=== PATIENT | female | born 1950 | race Caucasian/White ===

== ENCOUNTER 2017-11-22 13:35 | Inpatient (IN) | payer MEDICARE, OTHER ==
[2017-11-22] MEDS ORDERED: NON-FORMULARY ITEM (Oxycodone Hcl/Acetaminophen [Oxycodon-Acetaminophen 7.5-325] 1 EACH) PO PRN (17:00)
[2017-11-22] MEDS: PERCOCET TABLET 5/325MG PO PRN (19:42)
[2017-11-22] MEDS: Senokot-S Tablet PO SCH (21:43)
[2017-11-22] MEDS: Mirapex 0.5 MG Tablet PO SCH (21:43)
[2017-11-23] MEDS: PERCOCET TABLET 5/325MG PO PRN ×3 (04:18→18:21)
[2017-11-23] MEDS: SYNTHROID 25 MCG PO SCH (09:44)
[2017-11-23] MEDS: Zestril 10 MG PO SCH (09:44)
[2017-11-23] MEDS: Ecotrin 325 MG PO SCH (09:44)
[2017-11-23] MEDS: ZOLOFT 50 MG TABLET PO SCH (09:44)
[2017-11-23] MEDS: Senokot-S Tablet PO SCH ×2 (09:44→21:23)
[2017-11-23] MEDS: Tricor 145 MG PO SCH (09:44)
[2017-11-23] MEDS: SYNTHROID 112 MCG PO SCH (09:44)
[2017-11-23] MEDS ORDERED: Aplisol ID SCH (10:00)
[2017-11-23] MEDS ORDERED: NON-FORMULARY ITEM (Levothyroxine Sodium [Levothyroxine Sodium] 137 MCG) PO SCH (10:00)
[2017-11-23] MEDS: Mirapex 0.5 MG Tablet PO SCH (21:23)
[2017-11-24] MEDS: PERCOCET TABLET 5/325MG PO PRN ×3 (00:10→21:46)
[2017-11-24] MEDS: SYNTHROID 25 MCG PO SCH (07:56)
[2017-11-24] MEDS: SYNTHROID 112 MCG PO SCH (07:57)
[2017-11-24] MEDS: ZOLOFT 50 MG TABLET PO SCH (09:50)
[2017-11-24] MEDS: Ecotrin 325 MG PO SCH (09:50)
[2017-11-24] MEDS: Zestril 10 MG PO SCH (09:50)
[2017-11-24] MEDS: Tricor 145 MG PO SCH (09:50)
[2017-11-24] MEDS: Senokot-S Tablet PO SCH ×2 (09:50→21:44)
--- NOTE | 2017-11-24 19:16 | PCM.HP ---
History of Present Illness - Chief Complaint Chief Complaint: deconditioning r/t hip replacement History of Present Illness: is a 67 year old female.admitted for rehabilitation after hip replacement. - Review of Systems Constitutional: No Fever, No Chills Eyes: No Symptoms Ears, Nose, & Throat: No Symptoms Respiratory: No Cough, No Short Of Breath Cardiac: No Chest Pain, No Edema, No Syncope Abdominal/Gastrointestinal: No Abdominal Pain, No Nausea, No Vomiting, No Diarrhea Genitourinary Symptoms: No Dysuria Musculoskeletal: No Back Pain, No Neck Pain Skin: No Rash Neurological: No Dizziness, No Focal Weakness, No Sensory Changes Psychological: No Symptoms Endocrine: No Symptoms Hematologic/Lymphatic: No Symptoms Immunological/Allergic: No Symptoms Medications & Allergies Home Medications: Home Medication List Aspirin EC 325 mg [Ecotrin 325 MG] 325 mg PO DAILY 11/22/17 [History Confirmed 11/22/17] Fenofibrate,Micronized 145 mg* [Tricor 145 MG] 145 mg PO DAILY 11/22/17 [ History Confirmed 11/22/17] Levothyroxine Sodium 137 mcg PO DAILY 11/22/17 [History Confirmed 11/22/17] Lisinopril 10 mg [Zestril 10 MG] 10 mg PO DAILY 11/22/17 [History Confirmed 11/22/17] Oxycodone HCl/Acetaminophen [Oxycodon-Acetaminophen 7.5-325] 1 each PO Q4HPRN PRN 11/22/17 [History Confirmed 11/22/17] Pramipexole Di-HCl 0.5 mg [Mirapex 0.5 MG Tablet] 0.25 mg PO HS 11/22/17 [ History Confirmed 11/22/17] Sennosides/Docusate Sodium [Senna-Docusate Sodium Tablet] 1 each PO BID [History Confirmed 11/22/17] Sertraline HCl 50 mg [Zoloft 50 mg Tablet] 100 mg PO DAILY 11/22/17 [ History Confirmed 11/22/17] Allergies/Adverse Reactions: Allergies Allergy/AdvReac Type Severity Reaction Status Date / Time Sulfa (Sulfonamide Allergy Verified 11/22/17 16:51 Antibiotics) - Past Medical History Past Medical History: Yes Neurological History: No Pertinent History ENT History: No Pertinent History Cardiac History: High Cholesterol, Hypertension Respiratory History: No Pertinent History Endocrine Medical History: Other Musculoskelatal History: Fractures GI Medical History: No Pertinent History History: No Pertinent History Pyscho-Social History: No Pertinent History Reproductive Disorders: No Pertinent History Comment: R TIB/FIB FX D/T FALL 10 YEARS AGO, GRAVES DISEASE - Female History Are you now?: No - Past Surgical History Past Surgical History: Yes Neuro Surgical History: No Pertinent History Cardiac History: No Pertinent History Respiratory Surgery: No Pertinent History GI Surgical History: No Pertinent History Genitourinary Surgical Hx: No Pertinent History Musculskeletal Surgical Hx: Joint Replacement, Other Female Surgical History: No Pertinent History Other Surgical History: lt hip total replacement, rt fib/tib fracture repair with hardware - Social History Smoking Status: Never smoker Exposure to second hand smoke: No Alcohol: None Drug Use: none - Physical Exam Vital Signs: Vital Signs - 24 hr Temp Pulse Resp BP Pulse Ox 11/24/17 07:20 98.1 F 63 18 119/57 94 L 11/24/17 00:39 101/54 92 L 11/23/17 20:00 98.4 F 83 18 133/57 96 General Appearance: no apparent distress, alert Neurologic Exam: alert, oriented x 3, cooperative, normal mood/affect, nml cerebellar function, nml station & gait, sensation nml, No motor deficits Eye Exam: PERRL/EOMI, eyes nml inspection Ears, Nose, Throat Exam: normal ENT inspection, TMs normal, pharynx normal, moist mucous membranes Neck Exam: normal inspection, non-tender, supple, full range of motion Respiratory Exam: normal breath sounds, lungs clear, No respiratory distress Cardiovascular Exam: regular rate/rhythm, normal heart sounds, normal peripheral pulses Gastrointestinal/Abdomen Exam: soft, normal bowel sounds, No tenderness, No mass Back Exam: normal inspection, normal range of motion, No CVA tenderness, No vertebral tenderness Extremity Exam: normal inspection, normal range of motion, pelvis stable Skin Exam: normal color, warm, dry, No rash Lymphatic Exam: No adenopathy Assessment/Plan (1) Physical deconditioning Current Visit: Yes Status: Acute Code(s): R53.81 - OTHER MALAISE (2) Hip joint replacement status Current Visit: Yes Status: Acute Code(s): Z96.649 - PRESENCE OF UNSPECIFIED ARTIFICIAL HIP JOINT
[2017-11-24] MEDS: Mirapex 0.5 MG Tablet PO SCH (21:44)
[2017-11-25] MEDS: PERCOCET TABLET 5/325MG PO PRN ×4 (01:59→19:52)
[2017-11-25] MEDS: ZOLOFT 50 MG TABLET PO SCH (07:41)
[2017-11-25] MEDS: Tricor 145 MG PO SCH (07:41)
[2017-11-25] MEDS: Zestril 10 MG PO SCH (07:42)
[2017-11-25] MEDS: SYNTHROID 112 MCG PO SCH (07:43)
[2017-11-25] MEDS: Senokot-S Tablet PO SCH ×2 (07:43→20:56)
[2017-11-25] MEDS: Ecotrin 325 MG PO SCH (07:43)
[2017-11-25] MEDS: SYNTHROID 25 MCG PO SCH (07:47)
[2017-11-25] MEDS: Mirapex 0.5 MG Tablet PO SCH (20:57)
[2017-11-26] MEDS: PERCOCET TABLET 5/325MG PO PRN ×4 (01:04→21:11)
[2017-11-26] MEDS: SYNTHROID 25 MCG PO SCH (09:16)
[2017-11-26] MEDS: Zestril 10 MG PO SCH (09:16)
[2017-11-26] MEDS: Senokot-S Tablet PO SCH ×2 (09:16→21:11)
[2017-11-26] MEDS: Tricor 145 MG PO SCH (09:16)
[2017-11-26] MEDS: Ecotrin 325 MG PO SCH (09:16)
[2017-11-26] MEDS: ZOLOFT 50 MG TABLET PO SCH (09:16)
[2017-11-26] MEDS: SYNTHROID 112 MCG PO SCH (09:17)
--- NOTE | 2017-11-26 14:08 | PCM.NOTE ---
Date and Time: 11/26/17 9628 Subjective Assessment: doing better - Review of Systems Constitutional: No Fever, No Chills Eyes: No Symptoms Ears, Nose, & Throat: No Symptoms Respiratory: No Cough, No Short Of Breath Cardiac: No Chest Pain, No Edema, No Syncope Abdominal/Gastrointestinal: No Abdominal Pain, No Nausea, No Vomiting, No Diarrhea Genitourinary Symptoms: No Dysuria Musculoskeletal: No Back Pain, No Neck Pain Skin: No Rash Neurological: No Dizziness, No Focal Weakness, No Sensory Changes Psychological: No Symptoms Endocrine: No Symptoms Hematologic/Lymphatic: No Symptoms Immunological/Allergic: No Symptoms Objective Exam General Appearance: no apparent distress, alert Neurologic Exam: alert, oriented x 3, cooperative, normal mood/affect, nml cerebellar function, sensation nml, No motor deficits Skin Exam: normal color, warm, dry Eye Exam: PERRL, EOMI, eyes nml inspection Ears, Nose, Throat Exam: normal ENT inspection, pharynx normal, moist mucous membranes Neck Exam: normal inspection, non-tender, supple, full range of motion Respiratory Exam: normal breath sounds, lungs clear, No respiratory distress Cardiovascular Exam: regular rate/rhythm, normal heart sounds Gastrointestinal/Abdomen Exam: soft, No tenderness, No mass Extremity Exam: normal inspection, normal range of motion Back Exam: normal inspection, normal range of motion, No CVA tenderness, No vertebral tenderness Pelvic Exam: deferred Rectal Exam: deferred OBJECTIVE DATA Vital Signs: Vital Signs - 24 hr Temp Pulse Resp BP Pulse Ox 11/26/17 08:00 97.9 F 63 18 115/62 11/25/17 20:00 98.3 F 63 12 108/53 95 Pain Assessment - Last Documented Pain Intensity 5 Pain Scale Used 0-10 Pain Scale Intake and Output: Intake & Output 11/24/17 11/25/17 11/26/17 11/27/17 11:59 11:59 11:59 11:59 Intake Total 810 800 Balance 810 800 Multi-Disciplinary Progress Notes: Multi-Disciplinary Progress Notes 11/26/17 10:30 (created 11/26/17 12:28) Case Management Note by Alyce Isabel SPOKE WITH PATIENT TODAY REGARDING NEEDS AT DISCHARGE. PATIENT REPORTS SHE LIVES AT HOME ALONE AND PRIOR TO SURGERY WAS COMPLETELY INDEPENDENT AND HELPED CARE FOR HER PARENTS. SHE WOULD LIKE TO RETURN HOME AT [place]. SHE STATED SHE COULD MOVE IN WITH HER PARENTS AT [facility] IF NEEDED. SHE REPORTED THE NEED FOR A WALKER ON [place] AND IS INTERESTED IN [facility]. SHE WAS GIVEN PROVIDER PREFERENCE SHEET TO LOOK AT AND PICK FROM. WILL FAX REFERRAL TO [facility] WHEN DECISION IS MADE AND WILL SPEAK TO JAZMINE REGARDING WALKER. SHE DENIED ANY OTHER NEEDS OR SERVICES UPON DC AT THIS TIME. Initialized on 11/26/17 12:28 - END OF NOTE Assessment/Plan (1) Physical deconditioning Current Visit: Yes Status: Acute Code(s): R53.81 - OTHER MALAISE (2) Hip joint replacement status Current Visit: Yes Status: Acute Code(s): Z96.649 - PRESENCE OF UNSPECIFIED ARTIFICIAL HIP JOINT
[2017-11-26] MEDS: Mirapex 0.5 MG Tablet PO SCH (21:11)
[2017-11-27] MEDS: PERCOCET TABLET 5/325MG PO PRN ×4 (01:13→21:27)
[2017-11-27] MEDS: Tricor 145 MG PO SCH (07:47)
[2017-11-27] MEDS: Senokot-S Tablet PO SCH ×2 (07:48→21:26)
[2017-11-27] MEDS: Ecotrin 325 MG PO SCH (07:48)
[2017-11-27] MEDS: Zestril 10 MG PO SCH (07:48)
[2017-11-27] MEDS: ZOLOFT 50 MG TABLET PO SCH (07:48)
[2017-11-27] MEDS: SYNTHROID 25 MCG PO SCH (07:49)
[2017-11-27] MEDS: SYNTHROID 112 MCG PO SCH (07:49)
--- NOTE | 2017-11-27 08:56 | PCM.NOTE ---
Date and Time: 11/27/17 0856 Subjective Assessment: doing ok - Review of Systems Constitutional: No Fever, No Chills Eyes: No Symptoms Ears, Nose, & Throat: No Symptoms Respiratory: No Cough, No Short Of Breath Cardiac: No Chest Pain, No Edema, No Syncope Abdominal/Gastrointestinal: No Abdominal Pain, No Nausea, No Vomiting, No Diarrhea Genitourinary Symptoms: No Dysuria Musculoskeletal: No Back Pain, No Neck Pain Skin: No Rash Neurological: No Dizziness, No Focal Weakness, No Sensory Changes Psychological: No Symptoms Endocrine: No Symptoms Hematologic/Lymphatic: No Symptoms Immunological/Allergic: No Symptoms Objective Exam General Appearance: no apparent distress, alert Neurologic Exam: alert, oriented x 3, cooperative, normal mood/affect, nml cerebellar function, sensation nml, No motor deficits Skin Exam: normal color, warm, dry Eye Exam: PERRL, EOMI, eyes nml inspection Ears, Nose, Throat Exam: normal ENT inspection, pharynx normal, moist mucous membranes Neck Exam: normal inspection, non-tender, supple, full range of motion Respiratory Exam: normal breath sounds, lungs clear, No respiratory distress Cardiovascular Exam: regular rate/rhythm, normal heart sounds Gastrointestinal/Abdomen Exam: soft, No tenderness, No mass Extremity Exam: normal inspection, normal range of motion Back Exam: normal inspection, normal range of motion, No CVA tenderness, No vertebral tenderness Pelvic Exam: deferred Rectal Exam: deferred OBJECTIVE DATA Vital Signs: Vital Signs - 24 hr Temp Pulse Resp BP Pulse Ox 11/27/17 07:37 98.2 F 61 18 116/58 94 L 11/26/17 20:29 98.4 F 70 18 99/54 97 Pain Assessment - Last Documented Pain Intensity 5 Pain Scale Used 0-10 Pain Scale Intake and Output: Intake & Output 11/24/17 11/25/17 11/26/17 11/27/17 11:59 11:59 11:59 11:59 Intake Total 810 800 840 Balance 810 800 840 Multi-Disciplinary Progress Notes: Multi-Disciplinary Progress Notes 11/26/17 14:25 (created 11/26/17 14:47) Case Management Note by Joslyn James DR. ROUNDED AND EVALUATED, PT CONT TO PARTICIPATE IN PHYSICAL THERAPY TWICE DAILY. DENIES ADDNL NEEDS. VERBALIZED UNDERSTANDING TO PLAN OF CARE. DECLINED ADDNL NEEDS AT PRESENT. Initialized on 11/26/17 14:47 - END OF NOTE 11/26/17 10:30 (created 11/26/17 12:28) Case Management Note by Alyce Isabel SPOKE WITH PATIENT TODAY REGARDING NEEDS AT DISCHARGE. PATIENT REPORTS SHE LIVES AT HOME ALONE AND PRIOR TO SURGERY WAS COMPLETELY INDEPENDENT AND HELPED CARE FOR HER PARENTS. SHE WOULD LIKE TO RETURN HOME AT [place]. SHE STATED SHE COULD MOVE IN WITH HER PARENTS AT [facility] IF NEEDED. SHE REPORTED THE NEED FOR A WALKER ON DC AND IS INTERESTED IN [facility]. SHE WAS GIVEN PROVIDER PREFERENCE SHEET TO LOOK AT AND PICK FROM. WILL FAX REFERRAL TO [facility] WHEN DECISION IS MADE AND WILL SPEAK TO JAZMINE REGARDING WALKER. SHE DENIED ANY OTHER NEEDS OR SERVICES UPON [place] AT THIS TIME. Initialized on 11/26/17 12:28 - END OF NOTE Assessment/Plan (1) Physical deconditioning Current Visit: Yes Status: Acute Code(s): R53.81 - OTHER MALAISE (2) Hip joint replacement status Current Visit: Yes Status: Acute Qualifiers: Laterality: left Qualified Code(s): Z96.642 - Presence of left artificial hip joint Code(s): Z96.649 - PRESENCE OF UNSPECIFIED ARTIFICIAL HIP JOINT
[2017-11-27] MEDS: Mirapex 0.5 MG Tablet PO SCH (21:26)
[2017-11-28] MEDS: Tricor 145 MG PO SCH (08:29)
[2017-11-28] MEDS: Ecotrin 325 MG PO SCH (08:29)
[2017-11-28] MEDS: PERCOCET TABLET 5/325MG PO PRN ×2 (08:29→19:48)
[2017-11-28] MEDS: SYNTHROID 25 MCG PO SCH (08:29)
[2017-11-28] MEDS: ZOLOFT 50 MG TABLET PO SCH (08:29)
[2017-11-28] MEDS: Senokot-S Tablet PO SCH ×2 (08:29→23:19)
[2017-11-28] MEDS: Zestril 10 MG PO SCH (08:29)
[2017-11-28] MEDS: SYNTHROID 112 MCG PO SCH (08:29)
--- NOTE | 2017-11-28 08:30 | PCM.NOTE ---
Date and Time: 11/28/17828 Subjective Assessment: doing ok - Review of Systems Constitutional: No Fever, No Chills Eyes: No Symptoms Ears, Nose, & Throat: No Symptoms Respiratory: No Cough, No Short Of Breath Cardiac: No Chest Pain, No Edema, No Syncope Abdominal/Gastrointestinal: No Abdominal Pain, No Nausea, No Vomiting, No Diarrhea Genitourinary Symptoms: No Dysuria Musculoskeletal: No Back Pain, No Neck Pain Skin: No Rash Neurological: No Dizziness, No Focal Weakness, No Sensory Changes Psychological: No Symptoms Endocrine: No Symptoms Hematologic/Lymphatic: No Symptoms Immunological/Allergic: No Symptoms Objective Exam General Appearance: no apparent distress, alert Neurologic Exam: alert, oriented x 3, cooperative, normal mood/affect, nml cerebellar function, sensation nml, No motor deficits Skin Exam: normal color, warm, dry Eye Exam: PERRL, EOMI, eyes nml inspection Ears, Nose, Throat Exam: normal ENT inspection, pharynx normal, moist mucous membranes Neck Exam: normal inspection, non-tender, supple, full range of motion Respiratory Exam: normal breath sounds, lungs clear, No respiratory distress Cardiovascular Exam: regular rate/rhythm, normal heart sounds Gastrointestinal/Abdomen Exam: soft, No tenderness, No mass Extremity Exam: normal inspection, normal range of motion Back Exam: normal inspection, normal range of motion, No CVA tenderness, No vertebral tenderness Pelvic Exam: deferred Rectal Exam: deferred OBJECTIVE DATA Vital Signs: Vital Signs - 24 hr Temp Pulse Resp BP Pulse Ox 11/28/17 07:00 98.2 F 71 16 119/56 93 L 11/27/17 20:02 98.1 F 74 18 100/59 94 L Pain Assessment - Last Documented Pain Intensity 5 Pain Scale Used 0-10 Pain Scale Intake and Output: Intake & Output 11/25/17 11/26/17 11/27/17 11/28/17 11:59 11:59 11:59 11:59 Intake Total 800 840 Output Total 480 Balance 800 840 -480 Assessment/Plan (1) Physical deconditioning Current Visit: Yes Status: Acute Code(s): R53.81 - OTHER MALAISE (2) Hip joint replacement status Current Visit: Yes Status: Acute Qualifiers: Laterality: left Qualified Code(s): Z96.642 - Presence of left artificial hip joint Code(s): Z96.649 - PRESENCE OF UNSPECIFIED ARTIFICIAL HIP JOINT
[2017-11-28] MEDS: Mirapex 0.5 MG Tablet PO SCH (23:18)
[2017-11-29] MEDS: PERCOCET TABLET 5/325MG PO PRN ×3 (00:49→21:25)
[2017-11-29] MEDS: Senokot-S Tablet PO SCH ×2 (09:53→21:22)
[2017-11-29] MEDS: ZOLOFT 50 MG TABLET PO SCH (09:53)
[2017-11-29] MEDS: Tricor 145 MG PO SCH (09:53)
[2017-11-29] MEDS: SYNTHROID 25 MCG PO SCH (09:53)
[2017-11-29] MEDS: Ecotrin 325 MG PO SCH (09:54)
[2017-11-29] MEDS: Zestril 10 MG PO SCH (09:54)
[2017-11-29] MEDS: SYNTHROID 112 MCG PO SCH (09:54)
--- NOTE | 2017-11-29 12:37 | PCM.NOTE ---
Date and Time: 11/29/17 1236 Subjective Assessment: doing better - Review of Systems Constitutional: No Fever, No Chills Eyes: No Symptoms Ears, Nose, & Throat: No Symptoms Respiratory: No Cough, No Short Of Breath Cardiac: No Chest Pain, No Edema, No Syncope Abdominal/Gastrointestinal: No Abdominal Pain, No Nausea, No Vomiting, No Diarrhea Genitourinary Symptoms: No Dysuria Musculoskeletal: No Back Pain, No Neck Pain Skin: No Rash Neurological: No Dizziness, No Focal Weakness, No Sensory Changes Psychological: No Symptoms Endocrine: No Symptoms Hematologic/Lymphatic: No Symptoms Immunological/Allergic: No Symptoms Objective Exam General Appearance: no apparent distress, alert Neurologic Exam: alert, oriented x 3, cooperative, normal mood/affect, nml cerebellar function, sensation nml, No motor deficits Skin Exam: normal color, warm, dry Eye Exam: PERRL, EOMI, eyes nml inspection Ears, Nose, Throat Exam: normal ENT inspection, pharynx normal, moist mucous membranes Neck Exam: normal inspection, non-tender, supple, full range of motion Respiratory Exam: normal breath sounds, lungs clear, No respiratory distress Cardiovascular Exam: regular rate/rhythm, normal heart sounds Gastrointestinal/Abdomen Exam: soft, No tenderness, No mass Extremity Exam: normal inspection, normal range of motion Back Exam: normal inspection, normal range of motion, No CVA tenderness, No vertebral tenderness Pelvic Exam: deferred Rectal Exam: deferred OBJECTIVE DATA Vital Signs: Vital Signs - 24 hr Temp Pulse Resp BP Pulse Ox 11/29/17 07:26 97.5 F 64 16 110/51 94 L 11/28/17 19:41 98.1 F 70 20 109/52 96 Pain Assessment - Last Documented Pain Intensity 3 Pain Scale Used 0-10 Pain Scale,FLACC Intake and Output: Intake & Output 11/27/17 11/28/17 11/29/17 11/30/17 11:59 11:59 11:59 11:59 Intake Total 840 820 Output Total 480 Balance 840 -480 820 Multi-Disciplinary Progress Notes: Multi-Disciplinary Progress Notes 11/29/17 11:38 Physical Therapy Note by Dana Funk PATIENT HAS MADE CONSISTENT PROGRESS IN TOTAL HIP REHAB. IS DEVELOPING A MORE STABLE GAIT PATTERN WITH SMOOTHER WEIGHT SHIFT AND RECIPROCATION. LLE MUSCLE WEAKNESS AND SOME LEFT HIP PAIN CONTINUES TO LIMIT PROGRESSION TO LESS SUPPORTIVE ASSISTIVE DEVICE AT THIS TIME. PRE-EXISTING HEALTH ISSUES ALSO SUPPORT USE OF A ROLLATOR WALKER TO MAXIMIZE POTENTIAL FOR A HIGHER LEVEL OF INDEPENDENT FUNCTION IN ADL'S AFTER D/C HOME. PLAN IS FOR PATIENT TO RETURN HOME ON MONDAY 12/04 IN PROCESS OF FOLLOW-UP APPOINTMENT WITH SURGEON. Initialized on 11/29/17 11:38 - END OF NOTE Assessment/Plan (1) Physical deconditioning Current Visit: Yes Status: Acute Code(s): R53.81 - OTHER MALAISE (2) Hip joint replacement status Current Visit: Yes Status: Acute Qualifiers: Laterality: left Qualified Code(s): Z96.642 - Presence of left artificial hip joint Code(s): Z96.649 - PRESENCE OF UNSPECIFIED ARTIFICIAL HIP JOINT
[2017-11-29] MEDS: Mirapex 0.5 MG Tablet PO SCH (21:22)
[2017-11-30] MEDS: PERCOCET TABLET 5/325MG PO PRN ×4 (01:39→21:57)
[2017-11-30] MEDS: Senokot-S Tablet PO SCH ×2 (09:17→21:57)
[2017-11-30] MEDS: Ecotrin 325 MG PO SCH (09:17)
[2017-11-30] MEDS: Tricor 145 MG PO SCH (09:17)
[2017-11-30] MEDS: ZOLOFT 50 MG TABLET PO SCH (09:17)
[2017-11-30] MEDS: Zestril 10 MG PO SCH (09:17)
[2017-11-30] MEDS: SYNTHROID 112 MCG PO SCH (09:18)
[2017-11-30] MEDS: SYNTHROID 25 MCG PO SCH (09:19)
[2017-11-30] MEDS: Mirapex 0.5 MG Tablet PO SCH (21:56)
[2017-12-01] MEDS: PERCOCET TABLET 5/325MG PO PRN ×2 (01:55→18:56)
[2017-12-01] MEDS: Senokot-S Tablet PO SCH ×2 (09:18→21:23)
[2017-12-01] MEDS: Ecotrin 325 MG PO SCH (09:18)
[2017-12-01] MEDS: SYNTHROID 112 MCG PO SCH (09:18)
[2017-12-01] MEDS: SYNTHROID 25 MCG PO SCH (09:18)
[2017-12-01] MEDS: Zestril 10 MG PO SCH (09:18)
[2017-12-01] MEDS: Tricor 145 MG PO SCH (09:18)
[2017-12-01] MEDS: ZOLOFT 50 MG TABLET PO SCH (09:18)
[2017-12-01] MEDS: Mirapex 0.5 MG Tablet PO SCH (21:23)
[2017-12-02] MEDS: Tricor 145 MG PO SCH (08:30)
[2017-12-02] MEDS: SYNTHROID 25 MCG PO SCH (08:30)
[2017-12-02] MEDS: Ecotrin 325 MG PO SCH (08:30)
[2017-12-02] MEDS: ZOLOFT 50 MG TABLET PO SCH (08:30)
[2017-12-02] MEDS: PERCOCET TABLET 5/325MG PO PRN (08:30)
[2017-12-02] MEDS: Senokot-S Tablet PO SCH ×2 (08:30→21:18)
[2017-12-02] MEDS: Zestril 10 MG PO SCH (08:31)
[2017-12-02] MEDS: SYNTHROID 112 MCG PO SCH (08:33)
[2017-12-02] MEDS: Mirapex 0.5 MG Tablet PO SCH (21:17)
[2017-12-03] MEDS: Senokot-S Tablet PO SCH (09:36)
[2017-12-03] MEDS: Ecotrin 325 MG PO SCH (09:36)
[2017-12-03] MEDS: SYNTHROID 25 MCG PO SCH (09:36)
[2017-12-03] MEDS: SYNTHROID 112 MCG PO SCH (09:36)
[2017-12-03] MEDS: Zestril 10 MG PO SCH (09:37)
[2017-12-03] MEDS: Tricor 145 MG PO SCH (09:37)
[2017-12-03] MEDS: ZOLOFT 50 MG TABLET PO SCH (09:37)
[2017-12-03] MEDS: PERCOCET TABLET 5/325MG PO PRN (09:44)
[2017-12-04] MEDS: Mirapex 0.5 MG Tablet PO SCH (00:11)
[2017-12-04] MEDS: PERCOCET TABLET 5/325MG PO PRN ×3 (00:12→11:30)
[2017-12-04] MEDS: Senokot-S Tablet PO SCH ×2 (00:12→07:58)
[2017-12-04] MEDS: Ecotrin 325 MG PO SCH (07:58)
[2017-12-04] MEDS: Zestril 10 MG PO SCH (07:58)
[2017-12-04] MEDS: SYNTHROID 25 MCG PO SCH (07:58)
[2017-12-04] MEDS: ZOLOFT 50 MG TABLET PO SCH (07:58)
[2017-12-04] MEDS: Tricor 145 MG PO SCH (07:59)
[2017-12-04] MEDS: SYNTHROID 112 MCG PO SCH (07:59)
[2017-12-04 08:10] VITALS: BP 114/73; PULSE 69; O2SAT 98
[2017-12-04] MEDS ORDERED: Aplisol ID SCH (10:00)
--- NOTE | 2017-12-06 17:25 | PCM.DS ---
Discharge Summary Date of Admission: 11/22/17 15:35 Admitting Physician: TOÑA TORRES Primary Care Provider: GARRET PITTS Allergies Allergies Sulfa (Sulfonamide Antibiotics) Allergy (Verified 11/22/17 16:51) Hospital Summary - Hospital Course Hospital Course: Chief Complaint Diagnosis deconditioning r/t hip replacement Allergies Allergy/AdvReac Type Severity Reaction Status Date / Time Sulfa (Sulfonamide Allergy Verified 11/22/17 16:51 Antibiotics) Home Medications Medication Instructions Recorded Confirmed Last Taken Type Aspirin EC 325 mg [Ecotrin 325 325 mg PO DAILY 11/22/17 11/22/17 11/22/17 History MG] Fenofibrate,Micronized 145 mg* 145 mg PO DAILY 11/22/17 11/22/17 11/22/17 History [Tricor 145 MG] Levothyroxine Sodium 137 mcg PO DAILY 11/22/17 11/22/17 11/22/17 History Lisinopril 10 mg [Zestril 10 10 mg PO DAILY 11/22/17 11/22/17 11/22/17 History MG] Oxycodone HCl/Acetaminophen 1 each PO Q4HPRN PRN 11/22/17 11/22/17 11/22/17 13: 30 History [Oxycodon-Acetaminophen 7.5-325] Pramipexole Di-HCl 0.5 mg 0.25 mg PO HS 11/22/17 11/22/17 11/21/17 History [Mirapex 0.5 MG Tablet] Sennosides/Docusate Sodium 1 each PO BID 11/22/17 11/22/17 11/22/17 History [Docusate Sodium-Senna Tablet] Sertraline HCl 50 mg [Zoloft 50 100 mg PO DAILY 11/22/17 11/22/17 11/22/17 History mg Tablet] Current Medications Discontinued Medications Generic Name Dose Route Start Last Admin Trade Name Freq PRN Reason Stop Dose Admin Aspirin 325 mg 11/23/17 10:00 12/04/17 07:58 Ecotrin 325 Mg PO 12/23/17 09:59 325 mg DAILY LYNDON Administration Fenofibrate 145 mg 11/23/17 10:00 12/04/17 07:59 Tricor 145 Mg PO 12/23/17 09:59 145 mg DAILY LYNDON Administration Levothyroxine Sodium 112 mcg 11/23/17 10:00 12/04/17 07:59 Synthroid 112 Mcg PO 12/23/17 09:59 112 mcg DAILY LYNDON Administration Levothyroxine Sodium 25 mcg 11/23/17 10:00 12/04/17 07:58 Synthroid 25 Mcg PO 12/23/17 09:59 25 mcg DAILY LYNDON Administration Lisinopril 10 mg 11/23/17 10:00 12/04/17 07:58 Zestril 10 Mg PO 12/23/17 09:59 10 mg DAILY LYNDON Administration Oxycodone/Acetaminophen 1.5 tab 11/22/17 17:03 11/27/17 12:05 Percocet Tablet 5/325mg PO 11/27/17 17:02 1.5 tab Q4HPRN PRN Administration PAIN Oxycodone/Acetaminophen 1.5 tab 11/27/17 17:25 12/02/17 08:30 Percocet Tablet 5/325mg PO 12/02/17 17:24 1.5 tab Q4HPRN PRN Administration PAIN Oxycodone/Acetaminophen 1.5 tab 12/02/17 17:28 12/04/17 11:30 Percocet Tablet 5/325mg PO 12/07/17 17:27 1.5 tab Q4H PRN PRN Administration PAIN Pramipexole Dihydrochloride 0.25 mg 11/22/17 22:00 12/04/17 00:11 Mirapex 0.5 Mg Tablet PO 12/22/17 21:59 0.25 mg HS LYNDON Administration Senna/Docusate Sodium 1 udtab 11/22/17 22:00 12/04/17 07:58 Senokot-S Tablet PO 12/22/17 21:59 1 udtab BID LYNDON Administration Sertraline HCl 100 mg 11/23/17 10:00 12/04/17 07:58 Zoloft 50 Mg Tablet PO 12/23/17 09:59 100 mg DAILY LYNDON Administration Tuberculin PPD 5 unit 11/23/17 10:00 11/23/17 12:30 Aplisol ID 11/23/17 10:01 Not Given DAILY LYNDON Tuberculin PPD 5 unit 12/04/17 10:00 12/04/17 08:35 Aplisol ID 12/04/17 10:01 Not Given DAILY LYNDON Intake & Output (Last 24 hours) 12/04/17 12/05/17 12/06/17 12/07/17 11:59 11:59 11:59 11:59 Intake Total 760 Output Total 600 Balance 160 - Vitals & Intake/Output Vital Signs: Vital Signs Temperature 98 F 12/04/17 08:00 Pulse Rate 69 12/04/17 08:00 Respiratory Rate 16 12/04/17 08:00 Blood Pressure 114/73 12/04/17 08:00 O2 Sat by Pulse Oximetry 98 12/04/17 08:00 Intake & Output: Intake & Output 12/04/17 12/05/17 12/06/17 12/07/17 11:59 11:59 11:59 11:59 Intake Total 760 Output Total 600 Balance 160 - Procedures and Test Procedures and Tests throughout Hospitalization: Therapy Orders & Screens 11/22/17 15:54 PT Eval & Treat (MD Order) ROUTINE Reason for Eval:: Deconditioning Diagnosis: Deconditioning r/t left hip replacement Discharge Exam General Appearance: no apparent distress, alert Neurologic Exam: alert, oriented x 3, cooperative, normal mood/affect, nml cerebellar function, sensation nml, No motor deficits Skin Exam: normal color, warm, dry Eye Exam: PERRL, EOMI, eyes nml inspection Ears, Nose, Throat Exam: normal ENT inspection, pharynx normal, moist mucous membranes Neck Exam: normal inspection, non-tender, supple, full range of motion Respiratory Exam: normal breath sounds, lungs clear, No respiratory distress Cardiovascular Exam: regular rate/rhythm, normal heart sounds Gastrointestinal/Abdomen Exam: soft, No tenderness, No mass Extremity Exam: normal inspection, normal range of motion Back Exam: normal inspection, normal range of motion, No CVA tenderness, No vertebral tenderness Pelvic Exam: deferred Rectal Exam: deferred Final Diagnosis/Problem List - Final Discharge Diagnosis/Problem (1) Physical deconditioning Status: Acute (2) Hip joint replacement status Status: Acute - Discharge Discharge Date: 12/04/17 Disposition: Home, Self-Care Condition: Good Prescriptions: Continue Sertraline HCl 50 mg [Zoloft 50 mg Tablet] 100 mg PO DAILY Lisinopril 10 mg [Zestril 10 MG] 10 mg PO DAILY Fenofibrate,Micronized 145 mg* [Tricor 145 MG] 145 mg PO DAILY Aspirin EC 325 mg [Ecotrin 325 MG] 325 mg PO DAILY Sennosides/Docusate Sodium [Docusate Sodium-Senna Tablet] 1 each PO BID Pramipexole Di-HCl 0.5 mg [Mirapex 0.5 MG Tablet] 0.25 mg PO HS Oxycodone HCl/Acetaminophen [Oxycodon-Acetaminophen 7.5-325] 1 each PO Q4HPRN PRN PRN Reason: Pain Levothyroxine Sodium 137 mcg PO DAILY Instructions: Total Hip Replacement (DC) Follow up with: LOIS MARTÍNEZ [NON-STAFF PHY W/O PRIVILEGES] - 12/04/17 1:00 pm Forms: Discharge Instructions, Patient Portal Information
== END 2017-12-04 11:50 | disposition home or self-care (01) | DRG 566 ==
LOC: MED SURG 13:35 → UNDOADMIN 13:35 → MED SURG 14:48
PROVIDERS: ADMIT General Practice; ATTEND General Practice
DX: Z96.642 Presence of left artificial hip joint (principal); I10 Essential (primary) hypertension; Z79.899 Other long term (current) drug therapy
CPT/HCPCS: 97110-GP; A9270-GY